=== PATIENT | male | born 1995 | race African-American/Black ===

== ENCOUNTER 2016-09-07 15:16 | Emergency (ER) | payer SELFPAY ==
[2016-09-07 15:21] VITALS: BP 135/81
== END 2016-09-07 16:57 | disposition left against medical advice (07) ==
LOC: ER 15:16
DX: Z53.21 Procedure and treatment not carried out due to patient leaving prior to being seen by health care provider (principal)

== ENCOUNTER 2016-09-07 21:34 | Emergency (ER) | payer SELFPAY ==
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
[2016-09-08] MEDS ORDERED: HYDROMORPHONE HCL INJ/PF 2 MG/ML AMPULE IV ONE ×2 (00:17→07:50)
[2016-09-08] MEDS ORDERED: ONDANSETRON HCL INJ/PF 4 MG/2 ML SDV IV ONE (00:18)
[2016-09-08 10:17] VITALS: BP 114/67
== END 2016-09-08 10:30 | disposition short-term general hospital (02) ==
LOC: ER 21:34
DX: S02.642A Fracture of ramus of left mandible, initial encounter for closed fracture (principal); S02.641A Fracture of ramus of right mandible, initial encounter for closed fracture; S02.5XXA Fracture of tooth (traumatic), initial encounter for closed fracture; Y04.2XXA Assault by strike against or bumped into by another person, initial encounter; Y93.67 Activity, basketball; Y92.310 Basketball court as the place of occurrence of the external cause; R68.84 Jaw pain
CPT/HCPCS: 96376; 99291; 96374; 96375; 70450; 70486; 72125; J1170; J2405

== ENCOUNTER 2016-11-05 00:30 | Emergency (ER) | payer MEDICAID ==
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
[2016-11-05] MEDS ORDERED: CEFTRIAXONE INJ 1000 MG VIAL IV ONE (02:38)
[2016-11-05] MEDS ORDERED: CLINDAMYCIN PHOSPHATE INJ 300 MG/2 ML SDV IV ONE (02:41)
[2016-11-05 02:58] LABS: ABSOLUTE EOSINOPHILS # (AUTO) 0.1 10^3/uL (0.0-0.6); ABSOLUTE LYMPHOCYTES (AUTO) 2.6 10^3/uL (0.5-4.7); ABSOLUTE MONOCYTES (AUTO) 0.9 10^3/uL (0.1-1.4); ABSOLUTE NEUT (AUTO) 3.1 10^3/uL (1.7-8.2); BASOPHILS % (AUTO) 0.4 % (0-2); EOSINOPHILS % (AUTO) 1.1 % (0-6); HEMATOCRIT 40.8 % (37.9-51.0); HEMOGLOBIN 13.4 g/dL (13.5-17.0); HGB HCT DIFFERENCE -0.6; LYMPHOCYTES % (AUTO) 39.2 % (13-45); MEAN CORPUSCULAR HEMOGLOBIN 26.4 pg (27.0-33.4); MEAN CORPUSCULAR VOLUME 80 fl (80-97); MONOCYTES % (AUTO) 13.2 % (3-13); SEGMENTED NEUTROPHILS % (AUTO) 46.1 % (42-78); WHITE BLOOD COUNT 6.7 10^3/uL (4.0-10.5)
[2016-11-05] MEDS ORDERED: FENTANYL CITRATE INJ/PF 100 MCG/2 ML AMPUL IV ONE (03:35)
--- NOTE | 2016-11-05 03:55 | RADIOLOGY REPORT (SQ) ---
EXAM DESCRIPTION: CT FACIAL AREA WITHOUT COMPLETED DATE/TIME: 11/05/2016 3:14 am REASON FOR STUDY: recent jaw fracture infection new trauma COMPARISON: CT facial bones 09/08/2016. CT soft tissue neck 11/05/2016. TECHNIQUE: Noncontrasted images through the facial bones and orbits windowed for bone and soft tissu e. Additional coronal and sagittal reconstructed images reviewed. All images stored on PACS. All CT scanners at this facility use dose modulation, iterative reconstruction, and/or weight based d osing when appropriate to reduce radiation dose to as low as reasonably achievable (ALARA). [facility]: Dose Right [facility]: CareDose [facility]: Dose Right [facility]: Teradose 4D [facility]: [employer] RADIATION DOSE: 30.4 mGy. LIMITATIONS: None. FINDINGS: FACIAL BONES: Redemonstration of previously described oblique nondisplaced fracture of the bilateral mandibular rami extending to the mandibular molars. Interval placement of orthopedic hard beyer at the maxilla and mandible. No new acute fracture is identified. ORBITS: Intact. No fracture. Symmetric intact globes and retroorbital soft tissues. PARANASAL SINUSES: No air-fluid levels. Small mucous retention cyst/ polyp in the right maxillary si nus. SOFT TISSUES: Diffuse soft tissue stranding and edema over the right side of the face and mandible. INFERIOR BRAIN: Limited view. No acute findings. IMPRESSION: Known nondisplaced fractures of the bilateral mandibular rami. No new acute fracture is identified. Diffuse soft tissue stranding and edema over the right side of the face and mandible, p lease correlate with clinical exam to evaluate for cellulitis. TECHNICAL DOCUMENTATION: JOB ID: [id number] [facility] Quality ID # [id number]: Final reports with documentation of one or more dose reduction techniques (e.g., Au tomated exposure control, adjustment of the mA and/or kV according to patient size, use of iterative reconstruction technique) 2010 [employer]- All Rights Reserved
--- NOTE | 2016-11-05 04:08 | RADIOLOGY REPORT (SQ) ---
EXAM DESCRIPTION: CT SOFT TISSUE NECK WITH COMPLETED DATE/TIME: 11/05/2016 3:15 am REASON FOR STUDY: recent jaw fracture wires remain swelling COMPARISON: CT facial bones 09/08/2016, 11/05/2016. TECHNIQUE: Post IV contrasted scanning from skull base through lung apices with review of bone, soft tissue and lung windows. Reconstructed coronal and sagittal MPR images reviewed. All images stored on PACS. All CT scanners at this facility use dose modulation, iterative reconstruction, and/or weight based d osing when appropriate to reduce radiation dose to as low as reasonably achievable (ALARA). [facility]: Dose Right [facility]: CareDose [facility]: Dose Right [facility]: Teradose 4D [facility]: [employer] CONTRAST TYPE AND DOSE: contrast/concentration: Isovue 370.00 mg/ml; Total Contrast Delivered: 75.0 ml; Total Saline Delivered: 55.0 ml RENAL FUNCTION: None required. The patient is less than 50 years old. RADIATION DOSE: 12.17 . LIMITATIONS: None. FINDINGS: SKULL BASE: Intact. MAJOR SALIVARY GLANDS: No masses or inflammatory changes. LYMPHADENOPATHY: No obvious adenopathy. MUCOSAL MASSES OR ASYMMETRY: Diffuse soft tissue swelling over the right side of the face and mandibl e. 1.9 x 1.7 cm ill-defined enhancing area adjacent to the right side of the mandible. LARYNX/CORDS: No abnormal findings. VASCULAR STRUCTURES: The major vessels are patent. LUNG APICES: Clear. BONES: Previously described nondisplaced fracture of the bilateral mandibular rami extending to the b ilateral molar roots. Interval placement of orthopedic hardware at the maxilla and mandible. THYROID: Normal size. No masses. PARANASAL SINUSES: No air-fluid levels. Mucous retention cysts/polyps in the bilateral maxillary sin uses. IMPRESSION: Diffuse soft tissue swelling over the right side of the face and mandible, may represent cellulitis. 1.9 x 1.7 cm ill-defined enhancing area adjacent to the right side of the mandible, may represent phlegmon / early abscess. TECHNICAL DOCUMENTATION: JOB ID: [id number] [facility] Quality ID # [id number]: Final reports with documentation of one or more dose reduction techniques (e.g., Au tomated exposure control, adjustment of the mA and/or kV according to patient size, use of iterative reconstruction technique) 2010 [employer]- All Rights Reserved
[2016-11-05 05:24] VITALS: BP 117/66
== END 2016-11-05 05:21 | disposition home or self-care (01) ==
LOC: ER 00:30
DX: L03.211 Cellulitis of face (principal); R68.84 Jaw pain; R22.0 Localized swelling, mass and lump, head; W19.XXXA Unspecified fall, initial encounter; Z98.890 Other specified postprocedural states
CPT/HCPCS: 99284; 96375; 96365; 96367; 36415; 85025; 70486; 70491; J3010; J0696

== ENCOUNTER 2017-07-04 13:57 | Emergency (ER) | payer MEDICAID ==
[2017-07-04] MEDS ORDERED: ONDANSETRON HCL INJ/PF 4 MG/2 ML SDV IV ONE (14:06)
[2017-07-04] MEDS ORDERED: HYDROMORPHONE HCL INJ/PF 2 MG/ML AMPULE IV ONE (14:06)
[2017-07-04 14:19] LABS: ABSOLUTE LYMPHOCYTES (AUTO) 3.2 10^3/uL (0.5-4.7); ABSOLUTE MONOCYTES (AUTO) 0.8 10^3/uL (0.1-1.4); ABSOLUTE NEUT (AUTO) 1.6 10^3/uL (1.7-8.2); BASOPHILS % (AUTO) 0.5 % (0-2); EOSINOPHILS % (AUTO) 0.5 % (0-6); LYMPHOCYTES % (AUTO) 56.6 % (13-45); MEAN CORPUSCULAR HEMOGLOBIN 26.3 pg (27.0-33.4); MEAN CORPUSCULAR HGB CONC 33.3 g/dL (32.0-36.0); MEAN CORPUSCULAR VOLUME 79 fl (80-97); MONOCYTES % (AUTO) 14.3 % (3-13); PLATELET COUNT 266 10^3/uL (150-450); RED BLOOD COUNT 5.32 10^6/uL (4.35-5.55); RED CELL DISTRIBUTION WIDTH 13.1 % (11.5-14.0); SEGMENTED NEUTROPHILS % (AUTO) 28.1 % (42-78); TOTAL CELLS COUNTED % (AUTO) 100 %; WHITE BLOOD COUNT 5.7 10^3/uL (4.0-10.5)
[2017-07-04 14:37] VITALS: BP 147/88
[2017-07-04 14:38] LABS: ALANINE AMINOTRANSFERASE 25 U/L (21-72); ALBUMIN 4.4 g/dL (3.5-5.0); ALKALINE PHOSPHATASE 64 U/L (38-126); ANION GAP 14 (5-19); ASPARTATE AMINO TRANSFERASE 18 U/L (17-59); BILIRUBIN,DIRECT 0.4 mg/dL (0.0-0.4); BILIRUBIN,TOTAL 0.7 mg/dL (0.2-1.3); BLOOD UREA NITROGEN 8 mg/dL (7-20); CALCIUM 10.1 mg/dL (8.4-10.2); CARBON DIOXIDE 23 mmol/L (22-30); CHLORIDE 104 mmol/L (98-107); GLUCOSE 144 mg/dL (75-110); POTASSIUM 3.6 mmol/L (3.6-5.0); SODIUM 140.6 mmol/L (137-145); TOTAL PROTEIN 7.2 g/dL (6.3-8.2)
[2017-07-04 14:40] LABS: ALCOHOL < 10 mg/dL (NONE DETECTED)
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
[2017-07-04] MEDS ORDERED: CEFTRIAXONE INJ 1000 MG VIAL IV ONE (14:53)
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
== END 2017-07-04 16:28 | disposition home or self-care (01) ==
LOC: ER 13:57
DX: S01.90XA Unspecified open wound of unspecified part of head, initial encounter (principal); X95.8XXA Assault by other firearm discharge, initial encounter
CPT/HCPCS: 99284; 96375; 96365; 36415; 80307; 85025; 80053; 70450; 72125; J1170; J0696; J2405